=== PATIENT | male | born 1965 | race Caucasian/White ===

== ENCOUNTER 2018-06-19 01:08 | Outpatient (CLI) | payer BC, SELFPAY ==
--- NOTE | 2018-06-19 14:46 | DI.RAD_ITS ---
SYMPTOMS/DIAGNOSIS: HEMOPTYSIS X 2 WEEKS, R04.2 CHEST X-RAY, PA AND LATERAL: Comparison is 11/15/16. The heart is normal in size. The lungs are clear. The mediastinal structures and pleura appear intact. IMPRESSION: Normal chest.
== END 2018-06-19 01:28 ==
PROVIDERS: PCP Family Medicine; Visit Provider Family Medicine
DX: R04.2 Hemoptysis (principal)
CPT/HCPCS: 71046

== ENCOUNTER 2018-08-05 00:08 | Outpatient (CLI) | payer BC, SELFPAY ==
[2018-08-05 11:11] LABS: Anion Gap 11.1 mmol/L (3-11); BUN 16 mg/dL (7-18); CO2 26.9 mmol/L (21.0-32.0); CREATININE 1.21 mg/dL (0.70-1.30); Calcium 9.1 mg/dL (8.5-10.1); Chloride 101 mmol/L (98-107); Glucose 104 mg/dL (70-100); Potassium 4.2 mmol/L (3.5-5.1); Sodium 139 mmol/L (136-145); Vitamin B12 657 pg/mL (193-986)
== END 2018-08-05 00:28 ==
PROVIDERS: PCP Family Medicine; Visit Provider Family Medicine
DX: I10 Essential (primary) hypertension (principal); R20.2 Paresthesia of skin; N52.9 Male erectile dysfunction, unspecified; F17.200 Nicotine dependence, unspecified, uncomplicated; E66.9 Obesity, unspecified
CPT/HCPCS: 36415; 80048; 82607

== ENCOUNTER 2018-10-30 17:45 | Emergency (ER) | payer BC, SELFPAY ==
[2018-10-30 17:54] VITALS: BP 162/87; PULSE 70; RESP 16; TEMP 37; O2SAT 98
--- NOTE | 2018-10-30 18:06 | DI.RAD_ITS ---
SYMPTOM/DIAGNOSIS: LT ANT LOWER RIB INJURY, PAIN LEFT RIBS AND PA AND LATERAL CHEST: Comparison is made with 06/19/18. Heart size and pulmonary vasculature are within normal limits. The lungs are clear. No effusion or pneumothorax is identified. No rib fracture is seen. The bones are intact. IMPRESSION: No acute pulmonary process. No evidence of a rib fracture.
--- NOTE | 2018-10-30 18:07 | W.ED.GENAD ---
Discharge Plan Disposition Patient Disposition: HOME Condition: Stable Discharge Details Chief Complaint: Chest/Rib Clinical Impression: Acute chest wall pain Primary Care Provider: Nicolas Mantilla ED Provider: Nathanael Giraldo Home Meds and New Rx's Prescriptions: New lidocaine 5 % adhesive patch,medicated 1 patch TP DAILY PRN (Reason: pain) Qty: 15 RF: 0 Continued triamcinolone acetonide 15 GM cream 1 al Topical BID PRNQty: 3 RF: 4 ascorbic acid (vitamin C) [Vitamin C] 500 MG tablet 1,000 mg PO DAILY RF: 0 MAGNESIUM WITH ZINC 1,000 mg PO DAILY RF: 0 acetaminophen [Tylenol Extra Strength] 500 MG tablet 1,000 mg PO BID RF: 0 ranitidine HCl [Zantac Maximum Strength] 150 MG tablet 150 mg PO DAILY RF: 0 amlodipine 5 MG tablet 5 mg PO DAILY Qty: 90 RF: 4 meloxicam 15 MG tablet 15 mg PO DAILY Qty: 90 RF: 3 Ketoconazole 15 GM CREAM..G. Topical BID Qty: 30 RF: 2 metoprolol succinate 50 mg tablet extended release 24 hr 50 mg PO DAILY Qty: 90 RF: 4 lisinopril 40 mg tablet 40 mg PO DAILY Qty: 90 RF: 4 No Action venlafaxine 75 mg capsule,extended release 24hr 75 mg PO DAILY Qty: 90 RF: 4 Discharge Instructions Instructions: Chest Wall Pain (ED) Additional Instructions: Feel free to return the emergency department for any new or significant worsening of symptoms or further concerns he may have. Otherwise use lidocaine patches and [id number] pain medication as needed for discomfort. If not improving over the next 1-2 weeks feel free to follow-up with your primary care provider for reassessment Referrals: Nicolas Mantilla MD [Primary Care Provider] - (As needed for reassessment) Discharge Data Discharge Date/Time-TO BE ENTERED AT DEPARTURE: 10/30/18 20:00 Medical Decision Making Patient presenting to the emergency department for chief complaint of anterior left rib injury. Patient states that he was leaning over from a chair to get a toy for his dog when he felt a sudden sharp popping sensation in his left lower ribs. He reports previous rib fractures on the same side and in the same location. Patient does state pain with deep inspiration mostly on the left but denies any cardiac pain, rash, injury trauma irregular heartbeat or syncope. Physical assessment shows left anterior lower rib pain in ribs 7 through 9 without any focal findings noted. Exam is otherwise unremarkable. Plan to perform radiological imaging given previous rib fractures. Pending results patient agreeable to lidocaine patch but defers any other pain medication. Review of radiological imaging and radiologist interpretation shows no acute findings. Patient prescribed lidocaine patches to use at home for any further discomfort along with [id number] pain medication as he would normally take. Return precautions discussed. After discussion of diagnosis and plan of care patient is no further needs, questions, or concerns and states clear understanding to return to the emergency department for any worsening symptoms or further concerns. HPI General Mode of arrival: ambulatory. Date/Time Provider Initiated Documentation: 10/30/18 18:01. Limitations to Documentation: no limitations. Information obtained by: patient. History of Present Illness 53 year old M presents to the emergency department with the chief complaint of left rib injury, described as moderate, with intensity rated at 8. Quality is described as sharp, and is localized to the chest. Patient started experiencing this hour(s) (1) and it has been constant. Patient notes no other symptoms.. Patient did receive the following treatments prior to arrival, none Related Data Home Medications Medication Instructions Recorded Confirmed Magnesium With Zinc 1,000 mg PO DAILY 01/05/13 11/02/18 ascorbic acid (vitamin C) [Vitamin 1,000 mg PO DAILY 01/05/13 11/02/18 C] triamcinolone acetonide 1 al TOPICAL BID PRN #3 script 01/05/13 11/02/18 acetaminophen [Tylenol Extra 1,000 mg PO BID tab-cap 03/29/16 11/02/18 Strength] ranitidine HCl [Zantac Maximum 150 mg PO DAILY 10/13/17 11/02/18 Strength] amlodipine 5 mg PO DAILY #90 tab-cap 10/26/17 11/02/18 meloxicam 15 mg PO DAILY #90 tab-cap 12/13/17 11/02/18 metoprolol succinate ER 50 mg 50 mg PO DAILY #90 tab 04/27/18 11/02/18 tablet,extended release 24 hr lisinopril 40 mg tablet 40 mg PO DAILY #90 tab-cap 09/12/18 11/02/18 lidocaine 1 patch TP DAILY PRN #15 each 10/30/18 11/02/18 venlafaxine ER 75 mg 75 mg PO DAILY #90 cap 11/02/18 11/02/18 capsule,extended release 24 hr Previous Rx's Medication Instructions Recorded amlodipine 5 mg PO DAILY #90 tab-cap 10/26/17 meloxicam 15 mg PO DAILY #90 tab-cap 12/13/17 metoprolol succinate ER 50 mg 50 mg PO DAILY #90 tab 04/27/18 tablet,extended release 24 hr lisinopril 40 mg tablet 40 mg PO DAILY #90 tab-cap 09/12/18 lidocaine 1 patch TP DAILY PRN #15 each 10/30/18 venlafaxine ER 75 mg 75 mg PO DAILY #90 cap 11/02/18 capsule,extended release 24 hr Allergies Allergy/AdvReac Type Severity Reaction Status Date / Time bupropion AdvReac Unknown INCREASED Verified 11/02/18 15:59 DEPRESSION General Stated Complaint: Chest/Rib IRAJ: 3 Review of Systems Constitutional Denies fever(s) Cardiovascular Denies chest pain, Denies syncope, Denies irregular heart rhythm, Denies palpitations and Denies dyspnea Respiratory Denies cough, Denies dyspnea and Reports other (Pain with inspiration) Gastrointestinal Denies abdominal pain, Denies nausea and Denies vomiting Musculoskeletal Reports as per HPI Integumentary/Breasts Denies rash and Denies skin pain Neurologic Denies syncope Endocrine Denies palpitations [facility] Medical History Hearing loss (Chronic) Smoker (Chronic 12/29/15) Obesity (Chronic) Lichen planus (Chronic) Essential hypertension (Chronic) Depressive disorder (Chronic 03/19/13) Back pain (Chronic 02/27/14) Surgical History BACK SURGERY EYE SURGERY Excision, Pilonidal Cyst Extraction of cataract Repair of inguinal hernia Tooth extraction Vasectomy Family History Mother Dementia Breast cancer Father Diabetes Essential hypertension Heart disease Hyperlipidemia Stroke Sister Asthma Brother Essential hypertension Brain tumor Brother No problems noted. Maternal Grandfather Asthma Paternal Grandfather No problems noted. Maternal Grandmother No problems noted. Paternal Grandmother No problems noted. Son No problems noted. Social History Smoking/Tobacco Use Status: Current every day Tobacco Type: cigarettes Alcohol Intake: never Drug use: Never Substance use type: does not use Household members: other Details: 2 Pets and animals: Yes Pets and animals: dog(s) What type of physical activity do you participate in: none Duration: 15-30 minutes/day Frequency: 1-2 times per week Radha/Druze: No preference Special radha needs: No Do you feel safe in your relationship?: Yes Exam Const General: cooperative, healthy appearing, comfortable and no acute distress Nutritional Appearance: obese Orientation: alert, awake and oriented x3 Chest Chest: localized rib tenderness with anteroposterior compression (left 7-9) and No rash Resp Effort & Inspection: normal respiratory effort, able to speak in complete sentences, no segmental paradox chest wall movement and no tracheal deviation Auscultation: clear to auscultation bilaterally Cardio Rate: regular rate Rhythm: regular rhythm Heart Sounds: S1 normal, S2 normal, no click, no gallops, no murmurs and no rubs Course Vital Signs Temperature 37.0 C 10/30/18 17:54 Pulse 70 10/30/18 17:54 Respiratory Rate 16 10/30/18 17:54 Blood Pressure 162/87 H 10/30/18 17:54 Pulse Oximetry 98 10/30/18 17:54 Temperature 37.0 C 10/30/18 17:54 Temperature Source Skin 10/30/18 17:54 Pulse 70 10/30/18 17:54 Respiratory Rate 16 10/30/18 17:54 Respiratory Depth Shallow 10/30/18 18:00 Respiratory Pattern Normal 10/30/18 18:00 Blood Pressure 162/87 H 10/30/18 17:54 Blood Pressure Position Sitting 10/30/18 17:54 Pulse Oximetry 98 10/30/18 17:54 Oxygen Delivery Method Room Air 10/30/18 17:54 Oxygen Flow Rate 0 10/30/18 17:54 Pain Level 8 10/30/18 18:00
--- NOTE | 2018-10-30 18:14 | ED.GENADUL_ITS ---
Discharge Plan Disposition Patient Disposition: HOME Condition: Stable Discharge Details Chief Complaint: Chest/Rib Clinical Impression: Acute chest wall pain Primary Care Provider: Nicolas Mantilla ED Provider: Nathanael Giraldo Home Meds and New Rx's Prescriptions: New lidocaine 5 % adhesive patch,medicated 1 patch TP DAILY PRN (Reason: pain) Qty: 15 RF: 0 Continued triamcinolone acetonide 15 GM cream 1 al Topical BID PRNQty: 3 RF: 4 ascorbic acid (vitamin C) [Vitamin C] 500 MG tablet 1,000 mg PO DAILY RF: 0 MAGNESIUM WITH ZINC 1,000 mg PO DAILY RF: 0 acetaminophen [Tylenol Extra Strength] 500 MG tablet 1,000 mg PO BID RF: 0 ranitidine HCl [Zantac Maximum Strength] 150 MG tablet 150 mg PO DAILY RF: 0 amlodipine 5 MG tablet 5 mg PO DAILY Qty: 90 RF: 4 meloxicam 15 MG tablet 15 mg PO DAILY Qty: 90 RF: 3 Ketoconazole 15 GM CREAM..G. Topical BID Qty: 30 RF: 2 metoprolol succinate 50 mg tablet extended release 24 hr 50 mg PO DAILY Qty: 90 RF: 4 lisinopril 40 mg tablet 40 mg PO DAILY Qty: 90 RF: 4 No Action venlafaxine 75 mg capsule,extended release 24hr 75 mg PO DAILY Qty: 90 RF: 4 Discharge Instructions Instructions: Chest Wall Pain (ED) Additional Instructions: Feel free to return the emergency department for any new or significant worsening of symptoms or further concerns he may have. Otherwise use lidocaine patches and [id number] pain medication as needed for discomfort. If not improving over the next 1-2 weeks feel free to follow-up with your primary care provider for reassessment Referrals: Nicolas Mantilla MD [Primary Care Provider] - (As needed for reassessment) Discharge Data Discharge Date/Time-TO BE ENTERED AT DEPARTURE: 10/30/18 20:00 Medical Decision Making Patient presenting to the emergency department for chief complaint of anterior left rib injury. Patient states that he was leaning over from a chair to get a toy for his dog when he felt a sudden sharp popping sensation in his left lower ribs. He reports previous rib fractures on the same side and in the same location. Patient does state pain with deep inspiration mostly on the left but denies any cardiac pain, rash, injury trauma irregular heartbeat or syncope. Physical assessment shows left anterior lower rib pain in ribs 7 through 9 without any focal findings noted. Exam is otherwise unremarkable. Plan to perform radiological imaging given previous rib fractures. Pending results patient agreeable to lidocaine patch but defers any other pain medication. Review of radiological imaging and radiologist interpretation shows no acute findings. Patient prescribed lidocaine patches to use at home for any further discomfort along with [id number] pain medication as he would normally take. Return precautions discussed. After discussion of diagnosis and plan of care patient is no further needs, questions, or concerns and states clear understanding to return to the emergency department for any worsening symptoms or further concerns. HPI General Mode of arrival: ambulatory . Date/Time Provider Initiated Documentation: 10/30/18 18:01 . Limitations to Documentation: no limitations . Information obtained by: patient . History of Present Illness 53 year old M presents to the emergency department with the chief complaint of left rib injury, described as moderate, with intensity rated at 8. Quality is described as sharp, and is localized to the chest. Patient started experiencing this hour(s) (1) and it has been constant. Patient notes no other symptoms.. Patient did receive the following treatments prior to arrival, none Related Data Home Medications Medication Instructions Recorded Confirmed Magnesium With Zinc 1,000 mg PO DAILY 01/05/13 11/02/18 ascorbic acid (vitamin C) [Vitamin 1,000 mg PO DAILY 01/05/13 11/02/18 C] triamcinolone acetonide 1 al TOPICAL BID PRN #3 script 01/05/13 11/02/18 acetaminophen [Tylenol Extra 1,000 mg PO BID tab-cap 03/29/16 11/02/18 Strength] ranitidine HCl [Zantac Maximum 150 mg PO DAILY 10/13/17 11/02/18 Strength] amlodipine 5 mg PO DAILY #90 tab-cap 10/26/17 11/02/18 meloxicam 15 mg PO DAILY #90 tab-cap 12/13/17 11/02/18 metoprolol succinate ER 50 mg 50 mg PO DAILY #90 tab 04/27/18 11/02/18 tablet,extended release 24 hr lisinopril 40 mg tablet 40 mg PO DAILY #90 tab-cap 09/12/18 11/02/18 lidocaine 1 patch TP DAILY PRN #15 each 10/30/18 11/02/18 venlafaxine ER 75 mg 75 mg PO DAILY #90 cap 11/02/18 11/02/18 capsule,extended release 24 hr Previous Rx's Medication Instructions Recorded amlodipine 5 mg PO DAILY #90 tab-cap 10/26/17 meloxicam 15 mg PO DAILY #90 tab-cap 12/13/17 metoprolol succinate ER 50 mg 50 mg PO DAILY #90 tab 04/27/18 tablet,extended release 24 hr lisinopril 40 mg tablet 40 mg PO DAILY #90 tab-cap 09/12/18 lidocaine 1 patch TP DAILY PRN #15 each 10/30/18 venlafaxine ER 75 mg 75 mg PO DAILY #90 cap 11/02/18 capsule,extended release 24 hr Allergies Allergy/AdvReac Type Severity Reaction Status Date / Time bupropion AdvReac Unknown INCREASED Verified 11/02/18 15:59 DEPRESSION General Stated Complaint: Chest/Rib IRAJ: 3 Review of Systems Constitutional Denies fever(s) Cardiovascular Denies chest pain, Denies syncope, Denies irregular heart rhythm, Denies palpitations and Denies dyspnea Respiratory Denies cough, Denies dyspnea and Reports other (Pain with inspiration) Gastrointestinal Denies abdominal pain, Denies nausea and Denies vomiting Musculoskeletal Reports as per HPI Integumentary/Breasts Denies rash and Denies skin pain Neurologic Denies syncope Endocrine Denies palpitations [facility] Medical History Hearing loss (Chronic) Smoker (Chronic 12/29/15) Obesity (Chronic) Lichen planus (Chronic) Essential hypertension (Chronic) Depressive disorder (Chronic 03/19/13) Back pain (Chronic 02/27/14) Surgical History BACK SURGERY EYE SURGERY Excision, Pilonidal Cyst Extraction of cataract Repair of inguinal hernia Tooth extraction Vasectomy Family History Mother Dementia Breast cancer Father Diabetes Essential hypertension Heart disease Hyperlipidemia Stroke Sister Asthma Brother Essential hypertension Brain tumor Brother No problems noted. Maternal Grandfather Asthma Paternal Grandfather No problems noted. Maternal Grandmother No problems noted. Paternal Grandmother No problems noted. Son No problems noted. Social History Smoking/Tobacco Use Status: Current every day Tobacco Type: cigarettes Alcohol Intake: never Drug use: Never Substance use type: does not use Household members: other Details: 2 Pets and animals: Yes Pets and animals: dog(s) What type of physical activity do you participate in: none Duration: 15-30 minutes/day Frequency: 1-2 times per week Radha/Hoahaoism: No preference Special radha needs: No Do you feel safe in your relationship?: Yes Exam Const General: cooperative, healthy appearing, comfortable and no acute distress Nutritional Appearance: obese Orientation: alert, awake and oriented x3 Chest Chest: localized rib tenderness with anteroposterior compression (left 7-9) and No rash Resp Effort & Inspection: normal respiratory effort, able to speak in complete sentences, no segmental paradox chest wall movement and no tracheal deviation Auscultation: clear to auscultation bilaterally Cardio Rate: regular rate Rhythm: regular rhythm Heart Sounds: S1 normal, S2 normal, no click, no gallops, no murmurs and no rubs Course Vital Signs Temperature 37.0 C 10/30/18 17:54 Pulse 70 10/30/18 17:54 Respiratory Rate 16 10/30/18 17:54 Blood Pressure 162/87 H 10/30/18 17:54 Pulse Oximetry 98 10/30/18 17:54 Temperature 37.0 C 10/30/18 17:54 Temperature Source Skin 10/30/18 17:54 Pulse 70 10/30/18 17:54 Respiratory Rate 16 10/30/18 17:54 Respiratory Depth Shallow 10/30/18 18:00 Respiratory Pattern Normal 10/30/18 18:00 Blood Pressure 162/87 H 10/30/18 17:54 Blood Pressure Position Sitting 10/30/18 17:54 Pulse Oximetry 98 10/30/18 17:54 Oxygen Delivery Method Room Air 10/30/18 17:54 Oxygen Flow Rate 0 10/30/18 17:54 Pain Level 8 10/30/18 18:00
[2018-10-30] MEDS: Lidocaine 5% Patch 1 PATCH TP (18:37)
--- NOTE | 2018-10-30 19:38 | DI.VRAD_ITS ---
EXAM: XR Chest, 2 Views EXAM DATE/TIME: 10/30/2018 6:56 PM CLINICAL HISTORY: 53 years old, male; Pain; Chest wall pain; Patient HX: Lower anterior rib pain TECHNIQUE: XR of the chest, 2 views. COMPARISON: CR XR CHEST 2V PA LATERAL 06/19/2018 2:49 PM FINDINGS: Lungs: Lateral view confirms no airspace consolidation. Frontal view provided with rib images. Pleural space: No pleural effusion. No pneumothorax. Heart/Mediastinum: No cardiomegaly. Bones/joints: See Lungs Finding. IMPRESSION: Lateral view confirms no airspace consolidation. Dictated and Authenticated by: Sandrine Lassiter MD. Ordering:LEEANNA Huffman MD
[2018-10-30 20:33] VITALS: BP 161/102; PULSE 66; RESP 18; O2SAT 96
== END 2018-10-30 20:00 | disposition home or self-care (01) ==
PROVIDERS: Emergency Provider Nurse Practitioner Family; PCP Family Medicine
DX: R07.81 Pleurodynia (principal); Z87.81 Personal history of (healed) traumatic fracture; I10 Essential (primary) hypertension
CPT/HCPCS: 99283; 71046; 71100

== ENCOUNTER 2019-03-09 05:45 | Emergency (ER) | payer BC, SELFPAY ==
[2019-03-09 05:50] VITALS: BP 178/100; PULSE 66; TEMP 36.6; O2SAT 99
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
== END 2019-03-09 06:04 | disposition home or self-care (01) ==
LOC: ER 06:08
PROVIDERS: Emergency Provider Student in an Organized Health Care Education/Training Program; PCP Family Medicine
DX: T24.232A Burn of second degree of left lower leg, initial encounter (principal); T31.0 Burns involving less than 10% of body surface; X17.XXXA Contact with hot engines, machinery and tools, initial encounter
CPT/HCPCS: 16020

== ENCOUNTER 2019-04-25 00:43 | Emergency (ER) | payer BC, SELFPAY ==
[2019-04-25 00:48] VITALS: BP 185/98; PULSE 68; RESP 21; TEMP 36.5; O2SAT 100
--- NOTE | 2019-04-25 00:57 | ED.GENADUL_ITS ---
Discharge Plan Disposition Patient Disposition: HOME Condition: Good Discharge Details Chief Complaint: Orthopedic Clinical Impression: Injury of knee, right Primary Care Provider: Nicolas Mantilla ED Provider: Sami Lopez [place] Meds and New Rx's Prescriptions: New lidocaine 5 % adhesive patch,medicated 1 patch TP DAILY PRN (Reason: pain) Qty: 15 RF: 0 ibuprofen 600 mg tablet 600 mg PO Q8H PRN (Reason: pain) Qty: 20 RF: 0 Continued venlafaxine 75 mg capsule,extended release 24hr 75 mg PO DAILY Qty: 90 RF: 4 meclizine 12.5 mg tablet See Rx Instructions PO TID PRN (Reason: dizziness) Qty: 30 RF: 3 triamcinolone acetonide 15 GM cream 1 al Topical BID PRN PRNQty: 3 RF: 4 ascorbic acid (vitamin C) [Vitamin C] 500 MG tablet 1,000 mg PO DAILY RF: 0 MAGNESIUM WITH ZINC 1,000 mg PO DAILY RF: 0 acetaminophen [Tylenol Extra Strength] 500 MG tablet 1,000 mg PO BID RF: 0 ranitidine HCl [Zantac Maximum Strength] 150 MG tablet 150 mg PO DAILY RF: 0 Ketoconazole 15 GM CREAM..G. 0 Topical BID Qty: 30 RF: 2 metoprolol succinate 50 mg tablet extended release 24 hr 50 mg PO DAILY Qty: 90 RF: 4 lisinopril 40 mg tablet 40 mg PO DAILY Qty: 90 RF: 4 meloxicam 15 mg tablet 15 mg PO DAILY Qty: 90 RF: 3 amlodipine 5 mg tablet 5 mg PO DAILY Qty: 90 RF: 4 lidocaine 5 % adhesive patch,medicated 1 patch TP DAILY PRN (Reason: pain) Qty: 15 RF: 0 silver sulfadiazine [Silvadene] 1 % cream 1 applic TP BID PRN PRNQty: 20 RF: 0 Discharge Instructions Additional Instructions: X-rays are negative. It is possible you have a meniscus injury. Weight-bear as tolerated. Use lidocaine patches as directed. Alternate ibuprofen 600 mg with acetaminophen 1 g every 4 hours. Hold meloxicam while using ibuprofen. Follow-up with primary care. Return to ED for fever, increasing pain/swelling/erythema, inability to ambulate. Referrals: Nicolas Mantilla MD [Primary Care Provider] - Medical Decision Making Patient has no erythema or swelling to the knee. He relates it to an injury. Tenderness is present along the medial meniscal line. Doubt fracture but will get imaging to rule out. We will place Lidoderm patch and start on ibuprofen. Will need follow-up with PCP. X-rays are negative except for some arthritis. Extra-large knee brace was not big enough. He declines crutches stating that he has a cane at home that he would rather try. Lidoderm patch does seem to have helped some. We will discontinue meloxicam for now. We will place him on ibuprofen alternating with Tylenol in addition to Lidoderm patches. Follow-up with PCP. Return to ED for fever, redness, swelling, inability to ambulate. HPI General Mode of arrival: ambulatory . Date/Time Provider Initiated Documentation: 04/25/19 00:55 . Limitations to Documentation: no limitations . Information obtained by: patient and RN notes reviewed . HPI Narrative: Patient presents to ED with right medial knee pain. Patient states that it started when he was trying to get up off the floor from a crosslegged position. He felt a snap in that knee. He has had pain since then. He has difficulty ambulating because of pain. He has been taking Tylenol twice a day. He is also on meloxicam once a day. He has tried icy hot, ice, heat. Nothing seems to be making it better. He is able to ambulate but with discomfort. Related Data Home Medications Medication Instructions Recorded Confirmed Magnesium With Zinc 1,000 mg PO DAILY 01/05/13 04/25/19 ascorbic acid (vitamin C) [Vitamin 1,000 mg PO DAILY 01/05/13 04/25/19 C] triamcinolone acetonide 1 al TOPICAL BID PRN PRN #3 script 01/05/13 04/25/19 acetaminophen [Tylenol Extra 1,000 mg PO BID tab-cap 03/29/16 04/25/19 Strength] ranitidine HCl [Zantac Maximum 150 mg PO DAILY 10/13/17 04/25/19 Strength] metoprolol succinate 50 mg 50 mg PO DAILY #90 tab 04/27/18 04/25/19 tablet,extended release 24 hr lisinopril 40 mg tablet 40 mg PO DAILY #90 tab-cap 09/12/18 04/25/19 lidocaine 1 patch TP DAILY PRN #15 each 10/30/18 04/11/19 venlafaxine 75 mg capsule,extended 75 mg PO DAILY #90 cap 11/02/18 04/25/19 release 24 hr meclizine 12.5 mg tablet See Rx Instructions PO TID PRN #30 11/14/18 04/25/19 tab meloxicam 15 mg tablet 15 mg PO DAILY #90 tab-cap 12/18/18 04/25/19 amlodipine 5 mg tablet 5 mg PO DAILY #90 tab-cap 01/23/19 04/25/19 ibuprofen 600 mg PO Q8H PRN #20 tab 04/25/19 lidocaine 1 patch TP DAILY PRN #15 each 04/25/19 silver sulfadiazine [Silvadene] 1 applic TP BID PRN PRN #20 gm 04/25/19 04/25/19 Previous Rx's Medication Instructions Recorded metoprolol succinate 50 mg 50 mg PO DAILY #90 tab 04/27/18 tablet,extended release 24 hr lisinopril 40 mg tablet 40 mg PO DAILY #90 tab-cap 09/12/18 lidocaine 1 patch TP DAILY PRN #15 each 10/30/18 venlafaxine 75 mg capsule,extended 75 mg PO DAILY #90 cap 11/02/18 release 24 hr meclizine 12.5 mg tablet See Rx Instructions PO TID PRN #30 11/14/18 tab meloxicam 15 mg tablet 15 mg PO DAILY #90 tab-cap 12/18/18 amlodipine 5 mg tablet 5 mg PO DAILY #90 tab-cap 01/23/19 ibuprofen 600 mg PO Q8H PRN #20 tab 04/25/19 lidocaine 1 patch TP DAILY PRN #15 each 04/25/19 silver sulfadiazine [Silvadene] 1 applic TP BID PRN PRN #20 gm 04/25/19 Allergies Allergy/AdvReac Type Severity Reaction Status Date / Time bupropion AdvReac Unknown INCREASED Verified 04/25/19 00:56 DEPRESSION General Stated Complaint: Orthopedic IRAJ: 3 Review of Systems Musculoskeletal Reports arthralgias Integumentary/Breasts Denies erythema PFSH Medical History Back pain (Chronic 02/27/14) steroid injection 2014 discectomy x2 Depressive disorder (Chronic 03/19/13) Essential hypertension (Chronic) Hearing loss (Chronic) RIGHT EAR Lichen planus (Chronic) Obesity (Chronic) Smoker (Chronic 12/29/15) Surgical History BACK SURGERY X 2 FOR RUPTURED DISC L4-L5 Excision, Pilonidal Cyst Extraction of cataract right eye EYE SURGERY LEFT EYE;VITRUSECOTOMY & LASER FOR DETACHED RETINA; LASER SURGERY FOR DETACHED RETINA Repair of inguinal hernia B/L & AGE 3 Tooth extraction WISDOM TEETH EXTRACTION Vasectomy Social History Smoking/Tobacco Use Status: Current every day Tobacco Type: cigarettes Tobacco: How many years used: 30 Alcohol Intake: current Alcohol Intake frequency: a few times a month Alcohol type: beer Drug use: Occasionally Substance use type: marijuana Household members: other Details: 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 No tenderness with palpation of the patella. Able to lift and extend leg. Tenderness along the medial meniscal line. Ligaments appear to be intact. Range of motion is okay but with pain. Likes to have knee flexed to about 15 degrees. Course Vital Signs Temperature 97.7 F 04/25/19 00:48 Pulse 68 04/25/19 00:48 Respiratory Rate 21 04/25/19 00:48 Blood Pressure 185/98 H 04/25/19 00:48 Pulse Oximetry 100 04/25/19 00:48 Temperature 97.7 F 04/25/19 00:48 Temperature Source Skin 04/25/19 00:48 Pulse 68 04/25/19 00:48 Respiratory Rate 21 04/25/19 00:48 Blood Pressure 185/98 H 04/25/19 00:48 Pulse Oximetry 100 04/25/19 00:48 Oxygen Delivery Method Room Air 04/25/19 00:48 Oxygen Flow Rate 0 04/25/19 00:48 Pain Level 9 04/25/19 00:48
--- NOTE | 2019-04-25 01:35 | DI.RAD_ITS ---
SYMPTOMS/DIAGNOSIS: KNEE PAIN, INJURY RIGHT KNEE: No fracture or joint effusion is seen. There is spurring at the articular aspect of the patella. There is minimal spurring at the lateral tibial plateau. There is also some spurring at the femoral intercondylar notch and tibial spines. IMPRESSION: Degenerative changes greatest of the patellofemoral joint. No acute abnormality.
[2019-04-25] MEDS: Ibuprofen 600 MG TAB PO (01:48)
[2019-04-25] MEDS: Lidocaine 5% Patch 1 PATCH TP (01:49)
--- NOTE | 2019-04-25 01:55 | DI.VRAD_ITS ---
EXAM: XR Right Knee EXAM DATE/TIME: 04/25/2019 1:16 AM CLINICAL HISTORY: 53 years old, male; Right; Patient HX: R knee pain for 1 week, increasing TECHNIQUE: Imaging protocol: XR Right knee. Views: 3 views. COMPARISON: CR RIGHT KNEE 3 VIEWS 09/16/2014 12:42 PM FINDINGS: Bones/joints: Mild osteoarthritis most severe in the patellofemoral and lateral compartments Soft tissues: Normal. IMPRESSION: No acute findings Dictated and Authenticated by: Terrell Eduardo MD. Ordering:MOSHE Gallardo MD
== END 2019-04-25 02:29 | disposition home or self-care (01) ==
PROVIDERS: Emergency Provider Emergency Medicine; PCP Family Medicine
DX: S89.91XA Unspecified injury of right lower leg, initial encounter (principal); X50.9XXA Other and unspecified overexertion or strenuous movements or postures, initial encounter; I10 Essential (primary) hypertension
CPT/HCPCS: 73562; 99283

== ENCOUNTER 2019-07-16 01:49 | Outpatient (CLI) | payer BC, SELFPAY ==
--- NOTE | 2019-07-16 11:30 | ETT_ITS ---
APPROVED REPORT Exam: Exercise Treadmill Patient Location: Out-Patient Room/Bed: Stress Nurse: Kathleen Estrada RN BMI: 48.74 Baseline Rhythm: NSR Indications: Dyspnea Medical History Medical History: Smoking, SOB, Fatigue, HTN, Hyperlipidemia, Obesity Cardiac Medications: Amlodipine, Hydrochlorothiazide/ Microzide, Oretic, Metoprolol succinate/ Toprol XL, Lisinopril, Allergies: Bupropion Cardiac Risk Factors: HTN, Hyperlipidemia, FHX of CAD, Smoking, SOB Pretest Chest Pain Characteristics: No chest pain Exercise History: Sedentary Lung Sounds: Clear to auscultation Heart Sounds: Regular Stress Test Details Test: Exercise stress testing was performed using a Ralph protocol. Rest Stress HR Resting HR: 62 bpm Max Heart Rate (APMHR): 167 bpm Resting HR Supine: 62 bpm Target HR (85% APMHR): 141 bpm Resting HR Standin bpm Max HR Achieved: 132 bpm % of APMHR: 79 Recovery HR: 66 bpm HR response to stress: Blunted HR response to stress BP Resting BP: 154/82 mmHg Resting BP Supine: 154/82 mmHg Resting BP Standin/90 mmHg Max BP: 196/84 mmHg Recovery BP: 172/100 mmHg BP response to stress: Normal blood pressure response to stress. ECG Resting ECG: Sinus Rhythm Ectopy: PVC's Stress ECG: Sinus Tachycardia ST Change: Normal Arrhythmia: VPC's Recovery ECG: Sinus Rhythm Recovery Arrhythmia: None Clinical Time of Stop for Ralph: 6:03 Reason for Termination: Dyspnea Stress Symptoms: Dyspnea Exercise duration: 6 min03 sec Highest Stage Achieved: Stage 3: 3.4 mph at 14% grade. Exercise capacity: 7.11 METs Functional Capacity: Moderately diminished capacity Scale: Sedentary Stress ECG Conclusion 1. The patient exercised for 6 minutes (7 METS) which is below average exercise tolerance for age 2. The patient had no symptoms suggestive of ischemia and no EKG evidence of ischemia 3. The So Score (5) estimates an annual cardiovascular mortality of 1% and a five year survival of 94%. Using the So Score there is a low probability of any angiographic coronary disease. Protocol Used: Ralph Protocol Stress Test Summary STAGE Time (mins) Speed (mph) Grade (%) HR BP SYMPTOMS METS Supine 62 154/82 Standing 76 158/90 98% 1 3 1.7 10 108 162/94 98% 4.6 2 6 2.5 12 128 178/102 88% 7 3 9 3.4 14 10.2 4 12 4.2 16 12.9 5 15 5.0 18 17.2 1 min recovery 106 196/84 98% 3 min recovery 78 182/94 6 min recovery 66 172/100
== END 2019-07-16 02:09 ==
PROVIDERS: PCP Family Medicine; Visit Provider Nurse Practitioner
DX: R06.09 Other forms of dyspnea (principal); R06.02 Shortness of breath; R53.83 Other fatigue; I10 Essential (primary) hypertension; E78.5 Hyperlipidemia, unspecified; E66.9 Obesity, unspecified; Z82.49 Family history of ischemic heart disease and other diseases of the circulatory system
CPT/HCPCS: 93017

== ENCOUNTER 2019-07-28 09:49 | Outpatient (CLI) | payer BC, SELFPAY ==
[2019-07-28 11:48] LABS: Anion Gap 11.2 mmol/L (3-11); BUN 25 mg/dL (7-18); CO2 27.8 mmol/L (21.0-32.0); CREATININE 1.22 mg/dL (0.70-1.30); Calcium 9.1 mg/dL (8.5-10.1); Chloride 99 mmol/L (98-107); Glucose 99 mg/dL (74-106); Potassium 4.4 mmol/L (3.5-5.1); Sodium 138 mmol/L (136-145)
[2019-08-01 10:32] LABS: Testosterone, Total 192 ng/dL (240-950)
== END 2019-07-28 10:09 ==
PROVIDERS: Nurse Practitioner; PCP Family Medicine
DX: I10 Essential (primary) hypertension (principal)
CPT/HCPCS: 36415; 80048; 84403

== ENCOUNTER 2019-08-20 10:22 | Outpatient (CLI) | payer BC, SELFPAY ==
[2019-08-24 14:50] LABS: Testosterone, Total 137 ng/dL (240-950)
== END 2019-08-20 10:42 ==
PROVIDERS: PCP Family Medicine; Visit Provider Family Medicine
DX: E29.1 Testicular hypofunction (principal)
CPT/HCPCS: 36415; 84403

== ENCOUNTER 2019-09-15 08:39 | Outpatient (CLI) | payer BC, SELFPAY ==
[2019-09-19 12:30] LABS: Testosterone, Total 165 ng/dL (240-950)
== END 2019-09-15 08:59 ==
PROVIDERS: PCP Family Medicine; Visit Provider Family Medicine
DX: E29.1 Testicular hypofunction (principal)
CPT/HCPCS: 36415; 84403

== ENCOUNTER 2019-10-06 01:52 | Outpatient (CLI) | payer BC, SELFPAY ==
[2019-10-09 10:26] LABS: Testosterone, Total 220 ng/dL (240-950)
== END 2019-10-06 02:12 ==
PROVIDERS: PCP Family Medicine; Visit Provider Family Medicine
DX: E29.1 Testicular hypofunction (principal)
CPT/HCPCS: 36415; 84403

== ENCOUNTER 2019-10-30 10:23 | Outpatient (CLI) | payer MEDICAID, SELFPAY ==
[2019-11-01 08:25] LABS: Testosterone, Total 251 ng/dL (240-950)
== END 2019-10-30 10:43 ==
PROVIDERS: PCP Family Medicine; Visit Provider Family Medicine
DX: E29.1 Testicular hypofunction (principal)
CPT/HCPCS: 36415; 84403

== ENCOUNTER 2020-04-16 02:52 | Outpatient (CLI) | payer MEDICAID, SELFPAY ==
[2020-04-19 00:55] LABS: Testosterone, Total 112 ng/dL (240-950)
== END 2020-04-16 03:12 ==
PROVIDERS: Visit Provider Family Medicine
DX: E29.1 Testicular hypofunction (principal)
CPT/HCPCS: 36415; 84403

== ENCOUNTER 2020-05-15 01:32 | Outpatient (CLI) | payer MEDICAID, SELFPAY ==
--- NOTE | 2020-05-15 07:15 | DI.US_ITS ---
APPROVED REPORT EXAM: Comprehensive 2D, Doppler, and color-flow Echocardiogram Patient Location: Out-Patient Development System Efficiency Manager: Ellie Winters RDCS (AE) Indications: Peripheral edema, Dyspnea on exertion Other Information Study Quality: Adequate Conclusion Left Ventricle : The left ventricle is normal size. The left ventricular systolic function is normal. The left ventricular ejection fraction is within the normal range. There is normal left ventricular wall thickness. There is normal LV segmental wall motion. The left ventricular diastolic function is normal. LVEF is 55%. Right Ventricle : The right ventricle is normal size. The right ventricular systolic function is norm al. The RVSP is 21.7mmHg. Atria : The left atrium size is normal. The right atrium size is normal. Valves: There are no hemodynamically significant valvular lesions. Great Vessels : The aortic root is normal in size. The ascending aorta is mildly dilated. Aortic arch is normal in caliber. IVC is normal in size and collapses >50% with inspiration. Please see remainder of study for further details. There is no prior study available for comparison. Wall motion Left Ventricle The left ventricle is normal size. The left ventricular systolic function is normal. The left ventric ular ejection fraction is within the normal range. There is normal left ventricular wall thickness. T here is normal LV segmental wall motion. The left ventricular diastolic function is normal. There is no ventricular septal defect visualized. LVEF is 55%. Right Ventricle The right ventricle is normal size. The right ventricular systolic function is normal. The RVSP is 21 .7mmHg. Atria The left atrium size is normal. The right atrium size is normal. The interatrial septum is intact wit h no evidence for an atrial septal defect. Aortic Valve The aortic valve is normal in structure. Aortic valve is trileaflet. There is no aortic valvular sten osis. No aortic regurgitation is present. Mitral Valve The mitral valve is normal in structure. No evidence of mitral valve stenosis. Trace mitral regurgita tion. Tricuspid Valve The tricuspid valve is normal in structure. There is no tricuspid valve stenosis. Trace tricuspid reg urgitation. Pulmonic Valve The pulmonary valve is normal in structure. There is no pulmonic valvular stenosis. There is no pulmo fay valvular regurgitation. Great Vessels The aortic root is normal in size. The ascending aorta is mildly dilated. Aortic arch is normal in ca liber. IVC is normal in size and collapses >50% with inspiration. Pericardium There is no pericardial effusion. 2D Dimensions IVSD d PLAX 1.11 cm M: 0.6-1.2 LV Vol A2C d MOD 198.1 mL LVPW d PLAX 1.13 cm M: 0.6 - 1.2 LV Vol A4C d MOD 175.8 mL LVID d PLAX 5.73 cm M: 4.2 - 5.8 LA vol/ BSA A2C s A-L 28.3 mL/m2 LVDs 4.05 cm M: 2.5 - 4.0 LA vol/ BSA A4C s A-L 28.8 mL/m2 Ao Root d 2.90 cm M: 3.1 - 3.7 LA Vol/ BSA Biplane s A-L 31.0 mL/m2 RA Area A4C 25.00 cm2 LA Area A4C s MOD 26.20 cm2 RA Vol/ BSA A4C s A-L 27.8 mL/m2 LA Area A2C s MOD 23.94 cm2 Ao Asc Diam d 3.54 cm M: 2.6 - 3.4 LV EF A4C MOD 56.5 % LV EF Teichholz 55.1 % LV EF A2C MOD 55.8 % LVEF (Nunes's) 56.61 % M: 52 - 72 LV EF Biplane MOD 56.6 % LV Volume 127.86 mL M: 62 - 150 SV 108.34 mL LV Volume Index 43.05 mL/m2 M: 34 - 74 SV Index 36.42 mL/m2 LV Vol Biplane MOD 191.4 mL FS 29.05 % M-Mode TAPSE 3.50 cm (M/F) >1.7 LV Diastology MV E' medial 0.088 (>0.07 m/s) E/A Ratio 0.9 LV E/e MED 8.00 (<14) MV E Vmax 0.71 (0.4-1.3 m/s) MV E' lateral 0.125 (>0.1 m/s) MV A Vmax 0.75 (0.4-1.3 m/s) LV E/e LAT 5.60 (<14) MV E/A Ratio 0.94 MV E/E' medial 8.02 MV E/E' lateral 5.62 Aortic Valve LVOT Area 3.86 cm2 AoV Area Vmax 3.16 cm2 LVOT Vmax 1.37 m/s AoV Area/ BSA (Vmax) 1.06 cm2/m2 LVOT Mean Kiran. 0.86 m/s INÉS Mean Kiran. 2.95 cm2 LVOT Peak Grad 7.6 mmHg INÉS Mean Kiran. Index 0.99 cm2/m2 LVOT Mean Grad 3.6 mmHg LVOT VTI 0.272 m LVOT Diam s 2.20 cm AoV Vmax 1.68 m/s Velocity Ratio 0.81 AoV Mean Kiran. 1.13 m/s AoV Peak Grad 11.3 mmHg LVOT SV 104.87 mL AoV Mean Grad 5.8 mmHg AoV VTI 0.333 m AoV Area VTI 3.15 cm2 AoV Area/ BSA (VTI) 1.06 cm/m2 Mitral Valve MV DT 207 (160-240 msec) MV PHT 60 msec MV Area PHT 3.66 cm2 Pulmonary Valve PV Vmax 1.06 (0.5-1.5 m/s) RVOT Peak Gr. 3.77 mmHg PV Peak Grad 4.5 mmHg RVOT Mean Gr. 1.95 mmHg PV Mean Grad 2.9 mmHg RVOT VTI 0.214 m PV VTI 0.244 m RVOT Vmax 0.97 m/s Tricuspid Valve TR Peak Grad 18.6 mmHg TR Vmax 2.16 m/s RA Pressure 3.00 mmHg RVSP (TR) 21.7 mmHg
== END 2020-05-15 01:52 ==
PROVIDERS: Visit Provider Family Medicine
DX: I77.810 Thoracic aortic ectasia (principal); R06.00 Dyspnea, unspecified; R60.9 Edema, unspecified
CPT/HCPCS: 93306

== ENCOUNTER 2020-06-23 21:27 | Outpatient (REF) | payer MEDICAID, SELFPAY ==
[2020-06-23 22:24] LABS: Hemoglobin A1C 5.5 % (<5.7)
[2020-06-23 22:27] LABS: Calculated LDL 93 mg/dL (<100); Cholesterol 181 mg/dL (<200); HDL Cholesterol 21 mg/dL (40-60); Triglyceride 336 mg/dL (<150)
[2020-06-23 22:43] LABS: ALT 50 U/L (16-63); AST 33 U/L (15-37); Albumin 4.2 g/dL (3.4-5.0); Alkaline Phosphatase 52 U/L (46-116); Anion Gap 10.5 mmol/L (3-11); BUN 20 mg/dL (7-18); Bilirubin, Total 0.6 mg/dL (0.2-1.0); CO2 25.5 mmol/L (21.0-32.0); CREATININE 1.44 mg/dL (0.70-1.30); Calcium 9.7 mg/dL (8.5-10.1); Chloride 101 mmol/L (98-107); Estimated GFR 51.12 (mL/min/1.73m2); Glucose 79 mg/dL (74-106); Potassium 3.8 mmol/L (3.5-5.1); Sodium 137 mmol/L (136-145); Total Protein 7.6 g/dL (6.4-8.2)
[2020-06-23 23:02] LABS: Vitamin D 25 Total 18.5 ng/ml (30-100)
[2020-06-29 16:18] LABS: Testosterone, Total 500 ng/dL (240-950)
== END 2020-06-23 21:47 ==
LOC: NCHCN 21:27
PROVIDERS: Nurse Practitioner Family
DX: I10 Essential (primary) hypertension (principal); R53.82 Chronic fatigue, unspecified; E29.1 Testicular hypofunction; F32.9 Major depressive disorder, single episode, unspecified; E66.9 Obesity, unspecified; Z00.00 Encounter for general adult medical examination without abnormal findings
CPT/HCPCS: 80053; 80061; 82306; 84403; 83036

== ENCOUNTER 2020-10-06 16:00 | Outpatient (CLI) | payer BC, SELFPAY ==
--- NOTE | 2020-10-06 16:00 | RT.EKG_ITS ---
APPROVED REPORT Exam: Resting ECG Patient Location: O HR:73 bpm ECG Measurements Heart Rate 73 AXIS MO 169 P 73 QRSd 104 QRS 57 QT 391 T 7 QTc 430 Conclusion Sinus rhythm...normal P axis, V-rate 60- 99 Probable left atrial enlargement...P >50mS, <-0.10mV V1
== END 2020-10-06 16:01 | disposition home or self-care (01) ==
LOC: DI.CM 16:02
DX: I10 Essential (primary) hypertension (principal); F17.210 Nicotine dependence, cigarettes, uncomplicated
CPT/HCPCS: 93010

== ENCOUNTER 2020-11-26 03:32 | Outpatient (CLI) | payer BC, SELFPAY ==
[2020-11-26 09:00] LABS: Anion Gap 10.9 mmol/L (3-11); BUN 24 mg/dL (7-18); CO2 27.1 mmol/L (21.0-32.0); CREATININE 1.1 mg/dL (0.70-1.30); Calcium 8.6 mg/dL (8.5-10.1); Chloride 100 mmol/L (98-107); Glucose 92 mg/dL (74-106); Potassium 4.5 mmol/L (3.5-5.1); Sodium 138 mmol/L (136-145)
== END 2020-11-26 03:33 | disposition home or self-care (01) ==
LOC: LBO 03:32
DX: I10 Essential (primary) hypertension (principal); M54.9 Dorsalgia, unspecified
CPT/HCPCS: 36415; 80048

== ENCOUNTER 2021-03-17 05:27 | Emergency (ER) | payer BC, SELFPAY ==
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
[2021-03-17 05:33] VITALS: BP 151/81; PULSE 70; RESP 18; TEMP 36.4; O2SAT 99
--- NOTE | 2021-03-17 05:45 | DI.CT_ITS ---
Exam(s) CT HEAD FACIAL WO EXAM: CT HEAD FACIAL WO CLINICAL HISTORY: trauma; persistent headache/face pain. TECHNIQUE: Imaging Protocol: Axial computed tomography images with coronal and sagittal reformatted images were created and reviewed COMPARISON: No exams were available for comparison FINDINGS: CT Head: Ventricles and Extra axial spaces: Normal in size and morphology for the patient's age. Hemorrhage: None. Cerebral parenchyma: Normal. Midline shift: None. Brainstem/Cerebellum: Normal. Calvarium: Normal. Visualized Paranasal sinuses/Mastoids: Clear. Soft Tissues: Unremarkable. CT Face: Facial Bones: No definite fracture is noted in facial bones. Sinuses and Mastoids: Unremarkable. Globes, extraocular muscles, optic nerves and retrobulbar fat: Normal. Upper aerodigestive tract: Normal. Mandible and bilateral temporomandibular joints: Normal. Soft tissues: Normal. IMPRESSION: 1. No acute intracranial process. 2. No acute facial fracture. RADIATION DOSE DELIVERED: 2,109.11mGy.cm Total DLP DATA REPOSITORY: All CT scans at this facility are submitted to the National Radiology Data Registry (NRDR) Dose Index Registry (DIR) with the [employer] (ACR). RADIATION OPTIMIZATION: All CT scans at this facility use at least one of these dose optimization te chniques: automated exposure control; mA and/or kV adjustment per patient size (includes targeted exa ms where dose is matched to clinical indication); or iterative reconstruction.
--- NOTE | 2021-03-17 07:38 | DI.VRAD_ITS ---
PROCEDURE INFORMATION: Exam: CT Maxillofacial Without Contrast Exam date and time: 03/17/2021 5:48 AM Age: 55 years old Clinical indication: Other: Trauma headache and lt face pain TECHNIQUE: Imaging protocol: Computed tomography images of the face without contrast. Radiation optimization: All CT scans at this facility use at least one of these dose optimization techniques: automated exposure control; mA and/or kV adjustment per patient size (includes targeted exams where dose is matched to clinical indication); or iterative reconstruction. COMPARISON: No relevant prior studies available. FINDINGS: Orbital cavity: Orbits are normal. Globes are unremarkable. Bones/joints: No acute fracture. Paranasal sinuses: Normal. No air-fluid levels. Soft tissues: Suspected left forehead soft tissue scarring. Dental: Dental streak artifact is noted. IMPRESSION: No evidence of acute maxillofacial fracture. PROCEDURE INFORMATION: Exam: CT Head Without Contrast Exam date and time: 03/17/2021 5:48 AM Age: 55 years old Clinical indication: Other: Trauma headache and lt face pain TECHNIQUE: Imaging protocol: Computed tomography of the head without contrast. Radiation optimization: All CT scans at this facility use at least one of these dose optimization techniques: automated exposure control; mA and/or kV adjustment per patient size (includes targeted exams where dose is matched to clinical indication); or iterative reconstruction. COMPARISON: No relevant prior studies available. FINDINGS: Brain: No hemorrhage. Unremarkable white matter. No mass effect. No midline shift. Cerebral ventricles: No ventriculomegaly. Paranasal sinuses: Visualized sinuses are unremarkable. No fluid levels. Mastoid air cells: Visualized mastoid air cells are well aerated. Orbital cavity: Right lens implant. Vasculature: There are atherosclerotic calcifications in the carotid siphons. Bones/joints: No acute fracture. Soft tissues: Left forehead skin focal thickening with mild retraction may related to scarring. IMPRESSION: No acute intracranial abnormalities. Dictated and Authenticated by: Fred Valencia MD. Ordering:MOSHE Gallardo MD
[2021-03-17 07:49] VITALS: BP 162/84; PULSE 63; RESP 18; O2SAT 98
== END 2021-03-17 07:51 | disposition home or self-care (01) ==
PROVIDERS: Emergency Provider Emergency Medicine
DX: S00.83XA Contusion of other part of head, initial encounter (principal); W22.8XXA Striking against or struck by other objects, initial encounter; R51.9 Headache, unspecified
CPT/HCPCS: 99284; 70450; 70486

== ENCOUNTER 2021-12-28 01:25 | Outpatient (CLI) | payer BC, SELFPAY ==
[2021-12-28 13:20] LABS: ALT 55 U/L (16-63); AST 29 U/L (15-37); Albumin 4.1 g/dL (3.4-5.0); Alkaline Phosphatase 64 U/L (46-116); Anion Gap 9.8 mmol/L (3-11); BUN 15 mg/dL (7-18); Bilirubin, Total 0.4 mg/dL (0.2-1.0); CO2 27.2 mmol/L (21.0-32.0); CREATININE 1.1 mg/dL (0.70-1.30); Chloride 101 mmol/L (98-107); Glucose 115 mg/dL (74-106); Potassium 4.1 mmol/L (3.5-5.1); Sodium 138 mmol/L (136-145); Total Protein 7.2 g/dL (6.4-8.2)
[2021-12-31 10:30] LABS: Testosterone, Total 1060 ng/dL (240-950)
== END 2021-12-28 01:26 | disposition home or self-care (01) ==
LOC: LOS 01:25
DX: Z00.00 Encounter for general adult medical examination without abnormal findings (principal); I10 Essential (primary) hypertension; E29.1 Testicular hypofunction
CPT/HCPCS: 36415; 80053; 84403

== ENCOUNTER 2022-03-05 01:34 | Outpatient (CLI) | payer BC, SELFPAY ==
--- OUTSIDE RECORDS SUMMARY | 2022-03-05 01:36 | XMS_ITS | Encounter Summary ---
:1965 Author Organization [facility] Address [address] [place] [address] Care Team Providers Name Role Phone David Portillo MD Primary Care Provider Unavailable Encounter Details Date Type Department Care Team Description 05/22/2017 Hospital Encounter [facility] Urgent Unknown, Provider, Care - Iris singletary MD [address] [facility] [phone] [place] [address] (Work) [phone] Social History Tobacco Use Types Packs/Day Years Used Date Never Assessed Sex Assigned at Date Recorded Not on file documented as of this encounter Discharge Disposition Disposition Code Departure Means Destination Home or Self Care documented in this encounter Plan of Treatment Not on filedocumented as of this encounter Visit Diagnoses Not on filedocumented in this encounter Care Teams Muck Boss Relationship Specialty Start Date End Date David Portillo MD PCP - General 06/27/15 7 documented as of this encounter
--- OUTSIDE RECORDS SUMMARY | 2022-03-05 01:36 | XMS_ITS | Encounter Summary ---
:1965 Author Organization [facility] Address [address] [place] [address] Care Team Providers Name Role Phone David Portillo MD Primary Care Provider Unavailable Encounter Details Date Type Department Care Team Description 08/05/2017 Hospital Encounter [facility] - S Unknown, Pro Wilfredo ireland MD [address] [facility] [phone] [place] [address] (Work) [phone] Social History Tobacco Use Types Packs/Day Years Used Date Never Assessed Sex Assigned at Date Recorded Not on file documented as of this encounter Discharge Disposition Disposition Code Departure Means Destination Home or Self Detention documented in this encounter Plan of Treatment Not on filedocumented as of this encounter Visit Diagnoses Not on filedocumented in this encounter Care Teams Needle Molder Relationship Specialty Start Date End Date David Portillo MD PCP - General 06/27/15 7 documented as of this encounter
--- OUTSIDE RECORDS SUMMARY | 2022-03-05 01:36 | XMS_ITS | Encounter Summary ---
:1965 Author Organization [facility] Address [address] [place] [address] Care Team Providers Name Role Phone David Portillo MD Primary Care Provider Unavailable Encounter Details Date Type Department Care Team Description 05/20/2017 Hospital Encounter [facility]- Iris Unknown, Provider, Pravin Cummings MD [address] [facility] [phone] [place] [address] (Work) [phone] Social History Tobacco Use Types Packs/Day Years Used Date Never Assessed Sex Assigned at Date Recorded Not on file documented as of this encounter Discharge Disposition Disposition Code Departure Means Destination Home or Self Senior Care documented in this encounter Plan of Treatment Not on filedocumented as of this encounter Visit Diagnoses Not on filedocumented in this encounter Care Teams Salt Operator Relationship Specialty Start Date End Date David Portillo MD PCP - General 06/27/15 7 documented as of this encounter
--- OUTSIDE RECORDS SUMMARY | 2022-03-05 01:36 | XMS_ITS | Encounter Summary ---
:1965 Author Organization [facility] Address [address] [place] [address] Care Team Providers Name Role Phone Unavailable Primary Care Provider Unavailable Encounter Details Date Type Department Care Team Description 03/24/2007 Before PRISM [facility] - Sharad Miller MD Converted Visit Maple conversion [address] [facility] (Maple) [address] [place] [address] Pavilion, [place] [phone] (Wo rk) Social History Tobacco Use Types Packs/Day Years Used Date Never Assessed Sex Assigned at Date Recorded Not on file documented as of this encounter Progress Notes Sharad Miller MD - 06/26/2009 0353 EST DIVISION OF OPHTHALMOLOGY [facility] March 24, 2007 Arthur Samuels, FISH [address] [place] [address] [place] [address] Samuels: you for sending us Mr. Hall. As you know, I have seen him in consultation for evaluation of retinal detachment in his right eye. As you know the story, he had floaters in his right eye about two weeks ago. He saw you and you found him to have a posterior vitreous detachment. He started seeing shadows in his inferior right eye about two days ago. He only sees them when he looks straight down. On examination today, his visual acuity is 20/30 in his right eye, 20/20 in his left. Intraocular pressure is 18 in both eyes. His wagoner were actually full to finger count. His anterior exam is fairlyunremarkable other than having moderate cataract, in his right eye greater than left. He has more cortical changes likely related to gas in his right eye. Dilated funduscopic exam with ophthalmoscopy was performed and showed in the right eye cup-to-disc ratio of 0.2, with a pink, healthy optic nerve. He actually has a posterior vitreous detachment in this eye. He also has extensive areas of cryo from12 oclock to 9 oclock and from 8:45 to 6 oclock. He has a little patch of lattice at 6 oclock just adjacent to the laser. He has some more laser at approximately 2 oclock. He has an area of detached retina with two breaks within it that runs between the areas of previous laser therapy from 9 oclock to11 oclock and from 12 hien 12:30. His left eye cup-to-disc ratio is 0.3. He does not have a posteriorvitreous detachment in this eye. He has vitreous syneresis. He has multiple areas of laser at 11 oand at 12 oclock to 2 oclock. He has a little area of lattice approximately at 11:30 to 12 oclock with an atrophic hole in it. He has some laser at 3 oclock, and from 4 oclock to 6 oclock and from 7 oclock to 8 oclock. There are no tears or breaks in his left and his retina is attached. Impression: 1. Retinal detachment with two tears right eye status post vitrectomy by Dr. Sexton. 2. Lattice degeneration. 3. Posterior vitreous detachment right eye. 4. Cataract. Plan: At this point wetalked about all of the options which included pneumatic and/or scleral buckleor scleral buckle and vitrectomy. He strongly feels that he does not want to have scleral buckle procedure. I felt that this would be the safest thing for him, given his multiple areas of pathology, but he strongly feels at this point he does not want a scleral buckle procedure. I explained the point to that, which is the fact that he has had multiple areas of tears and breaks, he has lattice degeneration and now he has a retinal detachment with two new breaks. Again he feels strongly he does not want that. I have also talked to him about a pneumatic. He strongly feels at this point he does not want that as well. His reasoning is that he has a visual field defect in those areas anyway and he wouldlike that area lasered off. After extensive discussion with him and his , I explained why I thought that laser was the least favorable of all the options available to him. He strongly feels that he wants to get laser at this point and he has signed consent saying that he understands that the laser will not reattach his retina and that he may have further sequelae from further tears elsewhere and/or extension of the detachment were the laser not to work. He certainly understands thisincluding the chance of loss of vision and retinal detachment, and recurrent tears and failure to flatten the retina that is already detached. He and his have signed the consent sayingthat they want to proceed with laser tonight. They fully understand the risks, benefits, alternatives, and complications associated with this. We are going to do barrier laser to the area that is detached and I am going to have him on strict bedrest for seven days. I am going to follow up with him in the next couple ofdays to make sure he is doing well. Otherwise, he will continue as before. Thank you so much for sending us this very nice gentleman. Sincerely, Signed by Sharad Miller MD 03/30/2007 11:02 Morgan [facility] [id number] [place] [address] Krplm Y Kim, MD Sharad Miller MD [facility] Service [address] [place] [address] - Sharad Miller MD - cecile Job ID: [id number] Doc ID: [id number] cc: FISH Hawk MD cc: FISH Hawk MD documented in this encounter Plan of Treatment Not on filedocumented as of this encounter Visit Diagnoses Not on filedocumented in this encounter
[2022-03-05 07:46] LABS: ESR 7 mm/hr (0-20)
[2022-03-05 07:58] LABS: Hemoglobin A1C 5.5 % (<5.7)
[2022-03-05 09:05] LABS: TSH (W/Ref FT4) 1.05 uIU/mL (0.36-3.74); Vitamin B12 713 pg/mL (193-986)
[2022-03-08 13:45] LABS: Albumin 59.8 % (55.8-66.1); Albumin g/dL 4.2 g/dL (3.6-5.2)
[2022-03-10 18:26] LABS: Testosterone, Total 464 ng/dL (240-950)
== END 2022-03-05 01:35 | disposition home or self-care (01) ==
DX: E11.9 Type 2 diabetes mellitus without complications (principal); D51.8 Other vitamin B12 deficiency anemias; E29.1 Testicular hypofunction; R63.8 Other symptoms and signs concerning food and fluid intake; G62.9 Polyneuropathy, unspecified; G47.00 Insomnia, unspecified
CPT/HCPCS: 36415; 84403; 85652; 82607; 83036; 84165; 84443

== ENCOUNTER 2023-02-02 12:19 | Outpatient (CLI) | payer BC, SELFPAY ==
--- NOTE | 2023-02-02 12:15 | DI.RAD_ITS ---
Exam(s) XR LUMBAR SPINE COMPLETE EXAM: XR LUMBAR SPINE COMPLETE CLINICAL HISTORY: low back pain, M54.9. TECHNIQUE: 2D digital imaging was performed. COMPARISON: No exams were available for comparison FINDINGS: Five views: No evidence of fracture, listhesis, nor pars interarticularis defects. There is multilevel disc spac e narrowing which is most advanced at L4-5 and L5-S1 levels. Some posterior bony ridging at these le vels also facet arthrosis. There are short AP dimensions the pedicles. There is evidence of spinal canal stenosis in the lower lumbar spine. IMPRESSION: Advanced multilevel degenerative disc disease. Spinal canal stenosis suspected. DATA REPOSITORY: RADIATION DOSE DELIVERED:
--- NOTE | 2023-02-02 12:15 | DI.RAD_ITS ---
Exam(s) XR HIP LT COMPLETE AP PELVIS EXAM: XR HIP LT COMPLETE AP PELVIS CLINICAL HISTORY: left groin/hip pain for 4 weeks, M25.552. TECHNIQUE: 2D digital imaging was performed. COMPARISON: No exams were available for comparison FINDINGS: Two views No evidence of acute pelvic nor hip fracture. No hip joint space narrowing. Additional lateral view of the left hip reveals no joint space narrowing and no marginal osteophytes. Bone density normal. There are no osseous lesions. IMPRESSION: No fractures. No degenerative changes. DATA REPOSITORY: RADIATION DOSE DELIVERED:
== END 2023-02-02 12:39 ==
LOC: DI 12:20
PROVIDERS: PCP Family Medicine; Visit Provider Family Medicine
DX: M51.36 Other intervertebral disc degeneration, lumbar region; M54.9 Dorsalgia, unspecified
CPT/HCPCS: 72110; 73502

== ENCOUNTER 2023-04-26 02:34 | Outpatient (CLI) | payer BC, SELFPAY ==
[2023-04-26 08:27] LABS: HCT 53.4 % (40.0-50.0); HGB 18.5 g/dL (13.5-17.5); MCHC 34.6 % (32.0-36.0); MCV 101 fL (80-95); MPV 9.8 fL (8.0-11.0); Platelet Count 136 10^3/uL (130-400); RBC 5.28 10^6/uL (4.36-5.78); RDW 13.2 % (11.8-14.1); RDW-SD 49.1 fL; WBC 8.74 10^3/uL (4.4-10.8)
[2023-04-26 09:08] LABS: BUN 29 mg/dL (7-18); Calcium 9.4 mg/dL (8.5-10.1); Calculated LDL 112 mg/dL (<100); Chloride 98 mmol/L (98-107); Cholesterol 169 mg/dL (<200); Estimated GFR 88.33 (mL/min/1.73m2); Glucose 83 mg/dL (74-106); HDL Cholesterol 36 mg/dL (40-60); Potassium 3.5 mmol/L (3.5-5.1); Sodium 136 mmol/L (136-145); Triglyceride 107 mg/dL (<150)
[2023-05-01 09:38] LABS: Testosterone, Free 11.6 ng/dL (3.87-14.7); Testosterone, Total 489 ng/dL (240-950)
== END 2023-04-26 02:35 | disposition home or self-care (01) ==
LOC: LBO 02:34
PROVIDERS: PCP Family Medicine; Visit Provider Family Medicine
DX: Z00.00 Encounter for general adult medical examination without abnormal findings (principal); E78.5 Hyperlipidemia, unspecified; E87.1 Hypo-osmolality and hyponatremia; R53.83 Other fatigue
CPT/HCPCS: 36415; 80048; 80061; 84402; 84403; 85027

== ENCOUNTER 2023-06-10 12:52 | Outpatient (CLI) | payer BC, SELFPAY ==
--- NOTE | 2023-06-10 12:45 | RT.EKG_ITS ---
APPROVED REPORT Exam: Resting ECG Reason for Exam: NPW Baseline Needed Patient Location: O HR:76 bpm ECG Measurements Heart Rate 76 AXIS WI [id number] P [id number] QRSd 101 QRS 57 QT 402 T 72 QTc 453 Conclusion Atrial fibrillation...V-rate 66- 90, irreg A-activity Low voltage, extremity leads...all extremity leads <0.5mV Nonspecific T abnormalities,
== END 2023-06-10 12:53 | disposition home or self-care (01) ==
LOC: DI.CARD 12:53
PROVIDERS: PCP Family Medicine; Visit Provider Internal Medicine Cardiovascular Disease
DX: F17.210 Nicotine dependence, cigarettes, uncomplicated (principal); I10 Essential (primary) hypertension; I48.91 Unspecified atrial fibrillation; R68.89 Other general symptoms and signs
CPT/HCPCS: 93010

== ENCOUNTER 2023-06-20 03:29 | Outpatient (CLI) | payer BC, SELFPAY ==
[2023-06-20 12:31] LABS: Abs Immature Grans 0.05 10^3/uL (0.0-0.06); Absolute Basophil Count 0.08 10^3/uL (0.0-0.2); Absolute Eosinophil Count 0.11 10^3/uL (0.0-0.7); Absolute Lymphocyte Count 1.66 10^3/uL (1.2-3.4); Absolute Monocyte Count 0.85 10^3/uL (0.1-0.8); Absolute Neutrophil Count 5.25 10^3/uL (1.2-6.7); Eosinophils % 1.4; HCT 45.6 % (40.0-50.0); Immature Grans % 0.6; Lymphocytes % 20.8; MCH 33.7 pg (27.0-33.0); MCHC 32.9 % (32.0-36.0); MCV 103 fL (80-95); MPV 10.4 fL (8.0-11.0); Monocytes % 10.6; Neutrophils % 65.6; Platelet Count 186 10^3/uL (130-400); RBC 4.45 10^6/uL (4.36-5.78); RDW 13.5 % (11.8-14.1); RDW-SD 51.4 fL
== END 2023-06-20 03:30 | disposition home or self-care (01) ==
PROVIDERS: PCP Family Medicine; Visit Provider Physician Assistant Medical
DX: D68.59 Other primary thrombophilia (principal)
CPT/HCPCS: 36415; 85025